=== PATIENT | male | born 1955 | race Two or more races ===

== ENCOUNTER 2018-11-04 11:56 | Inpatient (IN) | payer MEDICARE, OTHER ==
[~2018-11-04] VITALS: Ht 182.9 cm; Wt 110.0 kg
[2018-11-04 12:01] VITALS: Ht 182.9 cm; Wt 110.0 kg
[2018-11-04] MEDS ORDERED: FUROSEMIDE 40 MG INJ IV STA (12:46)
[2018-11-04] MEDS ORDERED: NITROGLYCERIN 2% 1 GM OINT PKT ONE (13:27)
[2018-11-04] MEDS ORDERED: NITROGLYCERIN 0.4 MG/HR PATCH TRANSDERM ONE (13:30)
--- NOTE | 2018-11-04 13:32 | ERD ---
ER Documentation Chief Complaint Chief Complaint bilateral knee pain and right foot pain HPI 63-year-old male presents the emergency department complaining of bilateral lower extremity swelling. Patient is a very poor historian providing limited to no insight into his presentation. Patient states over the last few days, has had increasing pain and swelling in his lower extremities. He denies chest pain, PND, orthopnea or shortness of breath. Patient denies fevers, chills, trauma and provides no further details into his presentation. ROS All systems reviewed and are negative except as per history of present illness. Medications Home Meds No Active Prescriptions or Reported Meds Allergies Allergies: Coded Allergies: No Known Allergy (Unverified , 11/04/18) PMhx/Soc Hx Alcohol Use: No Hx Substance Use: No Hx Tobacco Use: No Smoking Status: Never smoker FmHx Unknown at this time Physical Exam Vitals Vital Signs Date Temp Pulse Resp B/P (MAP) Pulse Ox O2 O2 Flow FiO2 Time Delivery Rate 11/04/18 116 24 157/133 99 Room Air 13:36 (141) 11/04/18 Nasal 2 13:25 Cannula 11/04/18 97.3 106 22 168/104 96 12:01 (125) Physical Exam GENERAL: Patient is a chronically ill-appearing gentleman who appears short of breath HEENT: Pupils equal, round, and reactive to light. EOMI. There is no scleral icterus. JVD is appreciated NECK: C-spine is soft and supple, there is no meningismus. There is no cervical lymphadenopathy. LUNGS: Crackles at both bases with no tachypnea or retractions HEART: Irregularly irregular rapid rate and rhythm with no murmurs ABDOMEN: Soft, non-tender, non-distended. There are bowel sounds in all four quadrants. No rebound or guarding. EXTREMITIES: 2+ edema in both lower extremities with no cyanosis or clubbing. No trauma. No evidence of infection to the knee. No cellulitis. NEURO: The patient moves all four extremities with 5/5 strength. Cranial nerves II - XII are intact. Normal gait. Alert and oriented, but providing limited insight into his presentation. SKIN: There is no apparent rash or petechiae. HEME/LYMPHATIC: There is no evidence of excessive bruising PSYCHIATRIC: The patient does not appear anxious or depressed. He has a somewhat bizarre affect and demeanor. Result Diagram: 11/04/18 1330 11/04/18 1330 Results 24 hrs Laboratory Tests Test 11/04/18 13:19 11/04/18 13:30 11/04/18 13:57 POC Venous Lactate 2.1 mmol/L White Blood Count 5.7 10^3/ul Red Blood Count 4.12 10^6/ul Hemoglobin 11.8 g/dl Hematocrit 36.7 % Mean Corpuscular Volume 89.1 fl Mean Corpuscular Hemoglobin 28.6 pg Mean Corpuscular 32.2 g/dl Hemoglobin Concent Red Cell Distribution Width 14.6 % Platelet Count 242 10^3/UL Mean Platelet Volume 10.4 fl Immature Granulocytes % 0.200 % Neutrophils % 73.6 % Lymphocytes % 17.5 % Monocytes % 8.1 % Eosinophils % 0.2 % Basophils % 0.4 % Nucleated Red Blood Cells % 0.0 /100WBC Immature Granulocytes # 0.010 10^3/ul Neutrophils # 4.2 10^3/ul Lymphocytes # 1.0 10^3/ul Monocytes # 0.5 10^3/ul Eosinophils # 0.0 10^3/ul Basophils # 0.0 10^3/ul Nucleated Red Blood Cells # 0.0 10^3/ul Sodium Level 138 mmol/L Potassium Level 3.8 mmol/L Chloride Level 99 mmol/L Carbon Dioxide Level 29 mmol/L Anion Gap 10 Blood Urea Nitrogen 17 mg/dl Creatinine 1.15 mg/dl Est Glomerular Filtrat > 60 mL/min Rate mL/min Glucose Level 100 mg/dl Calcium Level 9.6 mg/dl Total Bilirubin 0.9 mg/dl Direct Bilirubin 0.00 mg/dl Indirect Bilirubin 0.9 mg/dl Aspartate Amino 79 IU/L Transf (AST/SGOT) Alanine 118 IU/L Aminotransferase (ALT/SGPT) Alkaline Phosphatase 160 IU/L Troponin I 0.054 ng/ml Total Protein 7.1 g/dl Albumin 3.8 g/dl Globulin 3.30 g/dl Albumin/Globulin Ratio 1.15 Blood Gas Specimen Source Blood arterial Arterial Blood Date Drawn 11/04/2018 2:00:21 PM Arterial Blood pH 7.442 (Temp corrected) Arterial Blood pCO2 40.0 mmhg (Temp correct) Arterial Blood pO2 75.5 mmHG (Temp corrected) Arterial Blood HCO3 26.7 mmol/L Arterial Blood Base Excess 2.4 mmol/L Arterial Blood 94.0 mmHG Oxygen Saturation Ayaz Test ACCEPTAB Arterial Blood Gas Right Radial Puncture Site Arterial 1.3 % Blood Carboxyhemoglobin Arterial Blood Methemoglobin 0.1 % Blood Gas A-a O2 Differential 76.9 mmHg Oxyhemoglobin Percent 92.7 % Blood Gas Temperature 37.0 C Blood Gas Modality NASAL CANNULA FiO2 28.0 % Blood Gas Notified Whom M.D. Blood Gas Notified Time 11/04/2018 2:09:46 PM Current Medications Medications Dose Sig/Catrina Start Time Status Last (Trade) Ordered Route PRN Stop Time Admin Dose Reason Admin Furosemide 40 mg ONCE STAT 11/04/18 DC 11/04/18 (Lasix) IV 12:46 11/04/18 13:32 12:48 1 patch ONCE ONCE 11/04/18 DC Nitroglycerin TRANSDERM 13:30 11/04/18 13:31 (Nitroglyceri n 0.4 Mg/Hr) 1 inch STK-MED 11/04/18 DC Nitroglycerin ONCE .ROUTE 13:27 11/04/18 13:28 (Nitroglyceri n 2% Oint) 0.5 inch ONCE ONCE 11/04/18 DC 11/04/18 Nitroglycerin TD 14:00 11/04/18 13:53 14:01 (Nitroglyceri n 2% Oint) Enalaprilat 0.625 mg ONCE ONCE 11/04/18 11/04/18 (Vasotec Iv) IV 14:30 11/04/18 14:15 14:31 Procedures/MDM Patient was taken to a room, seen and evaluated. Comfort measures were initiated. Diagnostic tests were ordered and reviewed. 3 LEAD RHYTHM STRIP: Atrial fibrillation with rapid ventricular response at approximately 101 bpm EK lead EKG reviewed by myself: Atrial fibrillation Right bundle branch block, left anterior fascicle block Nonspecific ST and T wave changes without ST elevation Impression: Abnormal EKG with atrial fibrillation with rapid ventricular response as well as myopathic changes RADIOLOGY: Reviewed with the radiologist CONSULTATION: Hospitalist was notified for admission REEVALUATION: Patient continued to require ongoing support for his blood pressure, which was elevated. Continue to monitor his atrial fibrillation and it never got above 110. Patient had ongoing medical treatment including Lasix, nitroglycerin and the Vasotec as well as oxygen support and will require admission to the hospital. MEDICAL DECISION MAKIN-year-old male presents the emergency department with lower extremity edema consistent with a CHF that is clearly related to his underlying atrial fibrillation and what appears to be a cardiomyopathy. Patient will require admission to the hospital for observation, diuresis as well as further evaluation of his atrial fibrillation. Initial troponin is reassuring as well as his renal function. His underlying abnormal affect and demeanor seems to be indicative of an underlying psychiatric comorbid condition as well. Patient clearly remains high risk requiring ongoing medical management and will require admission to the hospital. CRITICAL CARE: Time:>35 minutes Patient has a significant chance of clinical deterioration Treatments/Evaluations: Close monitoring and treatment of unstable vital signs, cardiorespiratory, and neurologic status, while maintaining tight balance of fluid, respiratory, and cardiac interventions. Departure Diagnosis: Primary Impression: Atrial fibrillation with rapid ventricular response Additional Impression: Acute decompensated heart failure Condition: Serious ARTURO,JASON Nov 04, 2018 13:32
[2018-11-04] MEDS ORDERED: NITROGLYCERIN 2% 1 GM OINT PKT TD ONE (14:00)
[2018-11-04] MEDS ORDERED: NITROGLYCERIN 0.2 MG/HR PATCH TRANSDERM ONE (14:30)
[2018-11-04] MEDS ORDERED: ENALAPRILAT 1.25 MG INJ IV ONE (14:30)
[2018-11-04] MEDS ORDERED: DILTIAZEM 25 MG INJ IV ONE (14:30)
--- NOTE | 2018-11-04 17:42 | HP ---
Date/Time of Note Date/Time of Note DATE: 11/04/18 TIME: 17:41 Assessment/Plan VTE Prophylaxis SCD contraindicated: low risk/ambulating Pharmacological prophylaxis: LMWH Lines/Catheters IV Catheter Type (from [facility]): Saline Lock Assessment/Plan Hospital Course CC edema History of present illness 63-year-old gentleman admitted with shortness of breath. Actually got into Did not require 911 and presented to ER. In the ER there was concern about fluid overload and A. fib RVR. Past medical history Psychosis? Past surgical history Unknown/poor historian Social Tobacco? Family history Unknown Review of systems -Unable to be obtained Physical exam Deferredpatient left AMA A/P 1) Decompensated CHF? 2) A Fib RVR 3) Acc HTn 4) Psychosis? 5) Anemia Result Diagram: 11/04/18 1330 11/04/18 1330 Results 24hrs Laboratory Tests Test 11/04/18 13:19 11/04/18 13:30 11/04/18 13:57 POC Venous Lactate 2.1 *H White Blood Count 5.7 Red Blood Count 4.12 L Hemoglobin 11.8 L Hematocrit 36.7 L Mean Corpuscular Volume 89.1 Mean Corpuscular Hemoglobin 28.6 L Mean Corpuscular 32.2 Hemoglobin Concent Red Cell Distribution Width 14.6 H Platelet Count 242 Mean Platelet Volume 10.4 Immature Granulocytes % 0.200 Neutrophils % 73.6 Lymphocytes % 17.5 Monocytes % 8.1 Eosinophils % 0.2 Basophils % 0.4 Nucleated Red Blood Cells % 0.0 Immature Granulocytes # 0.010 Neutrophils # 4.2 Lymphocytes # 1.0 Monocytes # 0.5 Eosinophils # 0.0 Basophils # 0.0 Nucleated Red Blood Cells # 0.0 Sodium Level 138 Potassium Level 3.8 Chloride Level 99 Carbon Dioxide Level 29 Anion Gap 10 Blood Urea Nitrogen 17 Creatinine 1.15 Est Glomerular Filtrat > 60 Rate mL/min Glucose Level 100 Calcium Level 9.6 Total Bilirubin 0.9 Direct Bilirubin 0.00 Indirect Bilirubin 0.9 Aspartate Amino 79 H Transf (AST/SGOT) Alanine 118 H Aminotransferase (ALT/SGPT) Alkaline Phosphatase 160 H Troponin I 0.054 B-Type Natriuretic Peptide 2150 H Total Protein 7.1 Albumin 3.8 Globulin 3.30 H Albumin/Globulin Ratio 1.15 Blood Gas Specimen Source Blood arterial Arterial Blood Date Drawn 11/04/2018 2:00:21 PM Arterial Blood pH 7.442 (Temp corrected) Arterial Blood pCO2 40.0 (Temp correct) Arterial Blood pO2 75.5 L (Temp corrected) Arterial Blood HCO3 26.7 H Arterial Blood Base Excess 2.4 Arterial Blood 94.0 L Oxygen Saturation Ayaz Test ACCEPTAB Arterial Blood Gas Right Radial Puncture Site Arterial 1.3 Blood Carboxyhemoglobin Arterial Blood Methemoglobin 0.1 Blood Gas A-a O2 Differential 76.9 H Oxyhemoglobin Percent 92.7 L Blood Gas Temperature 37.0 Blood Gas Modality NASAL CANNULA FiO2 28.0 Blood Gas Notified Whom M.D. Blood Gas Notified Time 11/04/2018 2:09:46 PM HPI/ROS Admit Date/Time Admit Date/Time PMH/Family/Social Past Medical History Medications Current Medications IV Flush (NS 3 ml) 3 ml PER PROTOCOL IV ; Start 11/04/18 at 18:00 Ondansetron HCl (Zofran Inj) 4 mg Q6H PRN IV NAUSEA AND/OR VOMITING; Start 11/04/18 at 18:00 Acetaminophen (Tylenol Tab) 650 mg Q6H PRN PO PAIN LEVEL 1-3 OR FEVER; Start 11/04/18 at 18:00 Acetaminophen (Tylenol Supp) 650 mg Q6H PRN WI PAIN LEVEL 1-3 OR FEVER; Start 11/04/18 at 18:00 Acetaminophen/ Hydrocodone Bitart ([place] (5/325)) 1 tab Q6H PRN PO MODERATE PAIN LEVEL 4-6; Start 11/04/18 at 18:00 Morphine Sulfate (morphine) 2 mg Q4H PRN IV SEVERE PAIN LEVEL 7-10; Start 11/04/18 at 18:00; Status UNV Docusate Sodium (Colace) 100 mg Q12H PRN PO CONSTIPATION; Start 11/04/18 at 18:00 Bisacodyl (Dulcolax) 5 mg DAILY PRN PO CONSTIPATION; Start 11/04/18 at 18:00 Bisacodyl (Dulcolax Supp) 10 mg DAILY PRN [place] CONSTIPATION; Start 11/04/18 at 18:00 Famotidine (Pepcid) 20 mg Q12 PO ; Start 11/04/18 at 21:00 Enoxaparin Sodium (Lovenox) 40 mg DAILY SC ; Start 11/05/18 at 09:00; Status UNV Coded Allergies: No Known Allergy (Unverified , 11/04/18) Social History Smoking Status: Never smoker Exam/Review of Systems Vital Signs Vitals Vital Signs Date Temp Pulse Resp B/P (MAP) Pulse Ox O2 O2 Flow FiO2 Time Delivery Rate 11/04/18 99.0 141 20 174/117 95 Nasal 2.0 15:30 (136) Cannula FINESSE AVILA MD Nov 04, 2018 17:42
[2018-11-04] MEDS ORDERED: morphine 2 MG INJ IV PRN (18:00)
[2018-11-04] MEDS ORDERED: ACETAMINOPHEN 650 MG SUPP PR PRN (18:00)
[2018-11-04] MEDS ORDERED: ACETAMINOPHEN 325 MG TAB PO PRN (18:00)
[2018-11-04] MEDS ORDERED: BISACODYL 10 MG SUPP PR PRN (18:00)
[2018-11-04] MEDS ORDERED: ONDANSETRON 4 MG INJ IV PRN (18:00)
[2018-11-04] MEDS ORDERED: BISACODYL (EC) 5 MG TAB PO PRN (18:00)
[2018-11-04] MEDS ORDERED: HALOPERIDOL 5 MG INJ IM PRN (18:00)
[2018-11-04] MEDS ORDERED: DOCUSATE SODIUM 100 MG CAP PO PRN (18:00)
[2018-11-04] MEDS ORDERED: NACL 0.9% 3 ML SYG IV SCH (18:00)
[2018-11-04] MEDS ORDERED: HYDROCODONE/APAP (5/325) TAB PO PRN (18:00)
[2018-11-04] MEDS ORDERED: ASPIRIN (EC) 81 MG TAB PO ONE (18:00)
[2018-11-04] MEDS ORDERED: THIAMINE 100 MG TAB PO SCH (18:00)
[2018-11-04 18:32] VITALS: PULSE 124
[2018-11-04 18:40] VITALS: BP 130/91; PULSE 51; RESP 20
--- NOTE | 2018-11-04 18:41 | NUR ---
RN NOTE PT ARRIVED ON THE UNIT FROM ER AT 1825. AX3, TALKING TO SELF, NO S/S OF DISTRESS, C/O PAIN 9/10 ON BOTH KNEES. PER PT HE CAME FROM A HOTEL AND TOOK A CAB TO THE ER. VS 130/91, 51, 96%,20, 98.9. REPORT TO BE GIVEN TO CONTACT CENTER CONSULTANT NURSE
[2018-11-04 19:43] VITALS: BP 145/78; PULSE 113; RESP 24
[2018-11-04 20:00] VITALS: PULSE 98
[2018-11-04] MEDS: FUROSEMIDE 40 MG INJ IV SCH ×2 (20:27→20:31)
[2018-11-04] MEDS ORDERED: FAMOTIDINE 20 MG TAB PO SCH (21:00)
[2018-11-04] MEDS ORDERED: ENOXAPARIN 100 MG/ML SYG SC SCH (21:00)
[2018-11-04 21:08] VITALS: PULSE 140
--- NOTE | 2018-11-04 23:30 | NUR ---
PT IN RM 616A SAID THAT HE WANTED TO SMOKE. EXPLAINED TO THE PT THAT IT IS NOT SAFE FOR HIM TO SMOKE ON HIS CURRENT CONDITION. EXPLAINED TO PT THE POLICY OF THE HOSPITAL THAT HE CAN NOT SMOKE INSIDE HIS ROOM. PT DECIDED TO DO AMA. INFORMED DR CHUNG AND HAVE THE PT SIGNED AMA FORM. PT PACKED ALL HIS BELONGINGS AND LEFT RIGHT AWAY
[2018-11-05] MEDS ORDERED: ENOXAPARIN 40 MG/0.4 ML SYG SC SCH (09:00)
[2018-11-05] MEDS ORDERED: LISINOPRIL 5 MG TAB PO SCH (09:00)
--- NOTE | 2018-11-05 10:11 | DS ---
Date/Time of Note Date/Time of Note DATE: 11/05/18 TIME: 10:11 Discharge Summary Admission/Discharge Info Admit Date/Time Nov 04, 2018 at 14:18 Discharge Date/Time Nov 04, 2018 at 23:41 Patient Condition: Guarded Hx of Present Illness 63-year-old gentleman admitted with shortness of breath Hospital Course Hospital course Admitted with shortness of breath. Left AMA. A/P 1) Decompensated CHF? 2) A Fib RVR 3) Acc HTn 4) Psychosis? 5) Anemia Home Meds No Active Prescriptions or Reported Meds Primary Care Provider Care Physician No Primary Time spent on discharge: < 30 minutes Pending Labs Laboratory Tests Test 11/04/18 13:19 11/04/18 13:30 11/04/18 13:57 11/04/18 18:46 POC Venous 2.1 Lactate mmol/L (0.5-2.0 ) White Blood 5.7 Count 10^3/ul (4.8-1 0.8) Red Blood 4.12 Count 10^6/ul (4.70- 6.10) Hemoglobin 11.8 g/dl (14.0-18. 0) Hematocrit 36.7 % (42.0-52.0) Mean 89.1 Corpuscular fl (82.0-101.0 Volume ) Mean 28.6 Corpuscular pg (29.0-33.0) Hemoglobin Mean 32.2 Corpuscular g/dl (32.0-37. Hemoglobin Conc 0) ent Red Cell 14.6 Distribution % (11.5-14.5) Width Platelet Count 242 10^3/UL (140-4 15) Mean Platelet 10.4 Volume fl (7.4-10.4) Immature 0.200 Granulocytes % % (0.001-0.429 ) Neutrophils % 73.6 % (39.0-77.0) Lymphocytes % 17.5 % (15.0-51.0) Monocytes % 8.1 % (0.0-11.0) Eosinophils % 0.2 % (0.0-7.0) Basophils % 0.4 % (0.0-2.0) Nucleated Red 0.0 Blood Cells % /100WBC (0.0-0 .0) Immature 0.010 Granulocytes # 10^3/ul (0.0-0 .031) Neutrophils # 4.2 10^3/ul (1.6-7 .5) Lymphocytes # 1.0 10^3/ul (0.8-2 .9) Monocytes # 0.5 10^3/ul (0.3-0 .9) Eosinophils # 0.0 10^3/ul (0.0-0 .5) Basophils # 0.0 10^3/ul (0.0-0 .1) Nucleated Red 0.0 Blood Cells # 10^3/ul (0.0-0 .0) Sodium Level 138 mmol/L (135-14 4) Potassium 3.8 Level mmol/L (3.5-5. 1) Chloride Level 99 mmol/L (97-110 ) Carbon Dioxide 29 Level mmol/L (21-31) Anion Gap 10 (5-13) Blood Urea 17 Nitrogen mg/dl (7-20) Creatinine 1.15 mg/dl (0.61-1. 24) Est Glomerular > 60 Filtrat mL/min (>60) Rate mL/min Glucose Level 100 mg/dl (70-220) Calcium Level 9.6 mg/dl (8.4-10. 2) Total 0.9 Bilirubin mg/dl (0.2-1.3 ) Direct 0.00 Bilirubin mg/dl (0.00-0. 20) Indirect 0.9 Bilirubin mg/dl (0-1.1) Aspartate Amino 79 Transf (AST/SGO IU/L (15-46) T) Alanine 118 Aminotransferas IU/L (13-69) e (ALT/SGPT) Alkaline 160 Phosphatase IU/L (42-121) Troponin I 0.054 ng/ml (0.000-0 .120) B-Type 2150 Natriuretic PG/ML (0-125) Peptide Total Protein 7.1 g/dl (6.1-8.1) Albumin 3.8 g/dl (3.3-4.9) Globulin 3.30 g/dl (1.3-3.2) Albumin/Globuli 1.15 n Ratio Blood Gas Blood arterial Specimen Source Arterial Blood 11/04/2018 2:00: Date Drawn 21 PM Arterial Blood 7.442 (7.350-7 pH .450) (Temp corrected ) Arterial Blood 40.0 pCO2 mmhg (35-45) (Temp correct) Arterial Blood 75.5 pO2 mmHG (80-100.0 (Temp corrected ) ) Arterial Blood 26.7 HCO3 mmol/L (22.0-2 6.0) Arterial Blood 2.4 Base Excess mmol/L (-3.0-3 ) Arterial Blood 94.0 Oxygen Saturati mmHG (95.0-98. on 0) Ayaz Test ACCEPTAB Arterial Blood Right Radial Gas Puncture Site Arterial 1.3 Blood Carboxyhe % (0.0-3.0) moglobin Arterial Blood 0.1 Methemoglobin % (0.0-1.5) Blood Gas A-a 76.9 O2 mmHg (7.0-24.0 Differential ) Oxyhemoglobin 92.7 Percent % (93.0-99.0) Blood Gas 37.0 C Temperature Blood Gas NASAL CANNULA Modality FiO2 28.0 % Blood Gas Romy Notified Whom Blood Gas 11/04/2018 2:09: Notified Time 46 PM Lactic Acid 2.1 Level mmol/L (0.5-2. 0) FINESSE AVILA MD Nov 05, 2018 10:11
== END 2018-11-04 23:41 | disposition left against medical advice (07) | DRG 204 ==
LOC: E/R 11:56 → 6WM 14:18
PROVIDERS: ADMIT Internal Medicine; ATTEND Internal Medicine
DX: R06.02 Shortness of breath (principal); M25.562 Pain in left knee; M25.561 Pain in right knee; I48.91 Unspecified atrial fibrillation; I50.9 Heart failure, unspecified
CPT/HCPCS: 36415; 36600; 71045; 80053; 82803; 83605; 83880; 84484; 85025; 93005; 93970; 96374; 96375; J1650; J1940

== ENCOUNTER 2018-12-19 23:32 | Emergency (ER) | payer MEDICARE, OTHER ==
[~2018-12-19] VITALS: Ht 182.9 cm; Wt 95.4 kg
[2018-12-19 23:49] VITALS: Ht 182.9 cm; Wt 95.4 kg
--- NOTE | 2018-12-20 05:11 | ERD ---
ER Documentation Chief Complaint Chief Complaint BILATERAL KNEE AND LEG PAIN ROS All systems reviewed and are negative except as per history of present illness. Medications Home Meds Active Scripts Terbinafine Hcl* (Terbinafine Hcl*) 250 Mg Tablet, 250 MG PO DAILY for onychomycosis, #42 TAB Prov:GOSIA CHAUHAN DO 12/20/18 PMhx/Soc Medical and Surgical Hx: pt denies Medical Hx, pt denies Surgical Hx Hx Alcohol Use: No Hx Substance Use: No Hx Tobacco Use: No Smoking Status: Never smoker Physical Exam Vitals Vital Signs Date Temp Pulse Resp B/P (MAP) Pulse Ox O2 O2 Flow FiO2 Time Delivery Rate 12/19/18 98.1 110 18 158/90 98 23:49 (112) Physical Exam Const: No acute distress Head: Atraumatic Eyes: Normal Conjunctiva ENT: Normal External Ears, Nose and Mouth. Neck: Full range of motion. No meningismus. Resp: Clear to auscultation bilaterally Cardio: Regular rate and rhythm, no murmurs Abd: Soft, non tender, non distended. Normal bowel sounds Skin: No petechiae or rashes Back: No midline or flank tenderness Ext: No cyanosis, or edema Neur: Awake and alert Psych: Normal Mood and Affect Departure Diagnosis: Primary Impression: Toenail fungus Condition: Fair Patient Instructions: Terbinafine Hydrochloride Oral tablet Referrals: [facility] YOU HAVE RECEIVED A MEDICAL SCREENING EXAM AND THE RESULTS INDICATE THAT YOU DO NOT HAVE A CONDITION THAT REQUIRES URGENT TREATMENT IN THE EMERGENCY DEPARTMENT. FURTHER EVALUATION AND TREATMENT OF YOUR CONDITION CAN WAIT UNTIL YOU ARE SEEN IN YOUR DOCTORS OFFICE WITHIN THE NEXT 1-2 DAYS. IT IS YOUR RESPONSIBILITY TO MAKE AN APPOINTMENT FOR FOLOW-UP CARE. IF YOU HAVE A PRIMARY DOCTOR --you should call your primary doctor and schedule an appointment IF YOU DO NOT HAVE A PRIMARY DOCTOR YOU CAN CALL OUR PHYSICIAN REFERRAL HOTLINE AT IF YOU CAN NOT AFFORD TO SEE A PHYSICIAN YOU CAN CHOSE FROM THE FOLLOWING [facility] [address] [facility] [address] [facility] [address] [facility] [address] [facility] [facility] [address] [facility]. [facility] [address] Additional Instructions: Call your primary care doctor TOMORROW for an appointment during the next 1-2 days.See the doctor sooner or return here if your condition worsens before your appointment time. Need to monitor for blood work (liver function) with your primary provider. GOSIA CHAUHAN DO Dec 20, 2018 05:11
== END 2018-12-20 05:51 | disposition home or self-care (01) ==
LOC: FTE 23:32 → EDBD 23:32 → MERGE 23:32 → FTE 12-20 05:51
DX: B35.1 Tinea unguium (principal)
CPT/HCPCS: 99283